=== PATIENT | female | born 1930 | race Caucasian/White ===

== ENCOUNTER 2017-11-04 02:31 | Inpatient (IN) ==
[2017-11-04] MEDS ORDERED: KETOROLAC 30 MG/1 ML VIAL IV STA (04:57)
[2017-11-04] MEDS ORDERED: KETOROLAC 30 MG/1 ML VIAL ONE (05:00)
[2017-11-04 06:44] LABS: Basophils % 0.3 % (0.0-0.8); Hematocrit 33.3 VOL% (35.7-47.0); Hemoglobin 11.1 GM/DL (12.0-16.0); Immature Granulocytes % 2.5 %; Immature Granulocytes Absolute 0.24 #; Lymphocytes # 0.5 10*3/uL (1.4-4.0); Lymphocytes % 5.5 % (21.3-54.2); Mean Corpuscular HGB Conc 33.3 GM/DL (32-36); Mean Corpuscular Hemoglobin 29 PG (27-34); Mean Corpuscular Volume 86.9 FL (87-102); Mean Platelet Volume 13.1 FL (9.6-12.0); Monocytes # 1.2 10*3/uL (0.11-0.8); Monocytes % 11.8 % (1.7-12.7); Neutrophils # 7.8 10*3/uL (1.4-7.4); Neutrophils % 79.9 % (38.7-73.9); Platelet Count 154 T/CUMM (130-400); Red Blood Count 3.83 MC/CUMM (3.8-5.5); Red Cell Distribution Width 14.1 % (9.3-17.3); White Blood Count 9.7 T/CUMM (4-12)
[2017-11-04 06:54] LABS: Alanine Aminotransferase 17 U/L (13-56); Albumin 2.2 G/DL (3.4-5.0); Alkaline Phosphatase 113 U/L (45-117); Aspartate Amino Transferase 33 U/L (0-37); Blood Urea Nitrogen 16 MG/DL (7-18); Calcium 8.6 MG/DL (8.5-10.1); Glucose 372 MG/DL (74-106); Osmolality,Calculated 288.8 MOS/KG (273-304); Potassium 3.6 MMOL/L (3.5-5.1); Sodium 137 MMOL/L (136-145); Troponin I Only < 0.015 NG/ML (0.00-0.045)
[2017-11-04 07:51] LABS: Apearance,Urine CLEAR (Clear); Bacteria,Urine Occasional /HPF (Few); Bilirubin,Urine Negative (Negative); Blood, Urine Small mg/dL (Negative); Glucose,Urine (UA) >=500 mg/dL (Negative); Hyaline Casts,Urine 2 /LPF (0-3); Ketones,Urine 20 mg/dL (Negative); Mucus,Urine Occasional /LPF (Occasional); Nitrite,Urine Negative (Negative); Protein,Urine 100 MG/DL; RBC,Urine 4 /HPF (0-4); Squamous Epithelial Cell,Urine Occasional /HPF (0-10); Urine Color Yellow (Yellow); Urine Specific Gravity 1.022 (1.001-1.035); Urine Urobilinogen < 2.0 EU/DL (0.2-1.0); WBC,Urine 7 /HPF (0-6)
[2017-11-04 08:02] LABS: Hypochromasia 1+; Lymphocytes 10 % (20-55); Myelocytes 1 %; Platelet Estimate Adequate; Segmented Neutrophils 75 % (50-85); Total Cells Counted 100
[2017-11-04] MEDS ORDERED: ONDANSETRON 4 MG/2 ML VIAL IV PRN (10:19)
[2017-11-04] MEDS ORDERED: DEXTROSE 50% 25 GM/50 ML VIAL IV PRN (10:31)
[2017-11-04] MEDS ORDERED: GLUCAGON 1 MG VIAL IM PRN (10:31)
[2017-11-04] MEDS ORDERED: INFLUENZA VIRUS VACCINE 0.5 ML SYRINGE IM ONE (11:48)
[2017-11-04] MEDS ORDERED: PNEUMOCOCCAL VACCINE (13 VALENT) 0.5 ML SYRINGE IM ONE (12:36)
[2017-11-04] MEDS: INSULIN LISPRO 100 UNIT/ML SUBCUT SCH ×3 (12:52→22:28)
[2017-11-04] MEDS: traZODone 50 MG TABLET PO SCH ×2 (16:33→22:04)
[2017-11-04] MEDS: GABAPENTIN 600 MG TABLET PO SCH ×2 (16:33→22:04)
[2017-11-04] MEDS: QUEtiapine 25 MG TABLET PO SCH ×2 (16:33→22:04)
[2017-11-04] MEDS: FERROUS SULFATE 325 MG TABLET PO SCH (22:04)
[2017-11-04] MEDS: DOCUSATE SODIUM 100 MG CAPSULE PO SCH (22:04)
[2017-11-05] MEDS: ACETAMINOPHEN 325 MG TABLET PO PRN ×2 (00:12→13:45)
[2017-11-05 06:18] LABS: Basophils % 0.3 % (0.0-0.8); Hematocrit 31.3 VOL% (35.7-47.0); Hemoglobin 10.4 GM/DL (12.0-16.0); Immature Granulocytes % 2.1 %; Immature Granulocytes Absolute 0.24 #; Lymphocytes # 0.7 10*3/uL (1.4-4.0); Lymphocytes % 5.9 % (21.3-54.2); Mean Corpuscular HGB Conc 33.2 GM/DL (32-36); Mean Corpuscular Hemoglobin 29 PG (27-34); Mean Corpuscular Volume 85.8 FL (87-102); Monocytes # 1.3 10*3/uL (0.11-0.8); Monocytes % 11.6 % (1.7-12.7); Neutrophils % 80.1 % (38.7-73.9); Platelet Count 165 T/CUMM (130-400); Red Blood Count 3.65 MC/CUMM (3.8-5.5); Red Cell Distribution Width 14.4 % (9.3-17.3); White Blood Count 11.2 T/CUMM (4-12)
[2017-11-05 06:57] LABS: Calcium 8.4 MG/DL (8.5-10.1); Magnesium 1.9 MG/DL (1.8-2.4); Osmolality,Calculated 286.8 MOS/KG (273-304); Potassium 3.3 MMOL/L (3.5-5.1); Thyroid Stimulating Hormone 0.23 uIU/ml (0.358-3.74)
[2017-11-05 06:59] LABS: Band Neutrophils 4 % (0-10); Lymphocytes 11 % (20-55); Myelocytes 3 %; Platelet Estimate Normal; Segmented Neutrophils 79 % (50-85); Total Cells Counted 100
[2017-11-05] MEDS ORDERED: CITALOPRAM 20 MG TABLET PO SCH (09:00)
[2017-11-05] MEDS ORDERED: fentaNYL 50 MCG/HR PATCH TRANSDERM SCH (10:30)
[2017-11-05] MEDS: INSULIN LISPRO 100 UNIT/ML SUBCUT SCH ×4 (11:08→23:49)
[2017-11-05] MEDS: QUEtiapine 25 MG TABLET PO SCH ×3 (11:16→23:38)
[2017-11-05] MEDS: GABAPENTIN 600 MG TABLET PO SCH ×3 (11:16→23:19)
[2017-11-05] MEDS: POTASSIUM CHLORIDE 20 MEQ TABLET PO SCH (11:16)
[2017-11-05] MEDS: PANTOPRAZOLE 40 MG TABLET PO SCH (11:16)
[2017-11-05] MEDS: FERROUS SULFATE 325 MG TABLET PO SCH ×2 (11:17→23:17)
[2017-11-05] MEDS: traZODone 50 MG TABLET PO SCH ×3 (11:17→23:38)
[2017-11-05] MEDS: DOCUSATE SODIUM 100 MG CAPSULE PO SCH ×2 (11:18→23:17)
[2017-11-05] MEDS: LEVOFLOXACIN INJ 750 MG in PREMIX 1 EACH IV SCH (22:34)
[2017-11-05] MEDS ORDERED: SUCCINYLCHOLINE 200 MG/10 ML VIAL IV ONE (22:36)
[2017-11-05] MEDS ORDERED: ETOMIDATE 20 MG/10 ML VIAL IV ONE (22:36)
[2017-11-05] MEDS ORDERED: fentaNYL 100 MCG/2 ML VIAL IV ONE (22:36)
[2017-11-05] MEDS ORDERED: PROPOFOL 1,000 MG/100 ML BOTTLE IV ONE (22:44)
[2017-11-05] MEDS ORDERED: FUROSEMIDE 40 MG/4 ML VIAL ONE (22:44)
[2017-11-05] MEDS ORDERED: FUROSEMIDE 40 MG/4 ML VIAL IV ONE (22:58)
[2017-11-05] MEDS: PROPOFOL 1,000 MG/100 ML BOTTLE IV SCH (23:01)
[2017-11-05 23:11] LABS: ABG Base Excess 4.4 MMOL/L (-2.5-2.5); ABG HCO3 28.3 MMOL/L (20-26); ABG Oxygen Saturation 96.3 % (95-100); ABG PCO2 45.3 MM HG (35-48); ABG PH 7.421 (7.35-7.45); ABG PO2 81.6 MM HG (80-95); ABG TCO2 26.5 MMOL/L (23-27); Allen Test Positive; Pt O2 Delivery Device Ventilator
[2017-11-05 23:15] LABS: Basophils # 0.1 10*3/uL (0.0-0.2); Basophils % 0.4 % (0.0-0.8); Hematocrit 33.4 VOL% (35.7-47.0); Hemoglobin 11.2 GM/DL (12.0-16.0); Immature Granulocytes % 2.7 %; Immature Granulocytes Absolute 0.38 #; Lymphocytes # 0.7 10*3/uL (1.4-4.0); Lymphocytes % 5.1 % (21.3-54.2); Mean Corpuscular HGB Conc 33.5 GM/DL (32-36); Mean Corpuscular Hemoglobin 29 PG (27-34); Mean Corpuscular Volume 85.9 FL (87-102); Mean Platelet Volume 12.2 FL (9.6-12.0); Monocytes # 1.6 10*3/uL (0.11-0.8); Monocytes % 11.4 % (1.7-12.7); NRBC # 0.03 10*3/uL; Neutrophils # 11.4 10*3/uL (1.4-7.4); Neutrophils % 80.4 % (38.7-73.9); Platelet Count 219 T/CUMM (130-400); Red Blood Count 3.89 MC/CUMM (3.8-5.5); Red Cell Distribution Width 15.1 % (9.3-17.3); White Blood Count 14.1 T/CUMM (4-12)
[2017-11-05] MEDS ORDERED: VANCOMYCIN INJ 1,250 MG in SODIUM CHLORIDE 0.9% 250 ML IV SCH (23:30)
[2017-11-05 23:34] LABS: Calcium 8.4 MG/DL (8.5-10.1); Osmolality,Calculated 296.4 MOS/KG (273-304); Potassium 4.1 MMOL/L (3.5-5.1)
[2017-11-05] MEDS: fentaNYL INJ 1,250 MCG in SODIUM CHLORIDE 0.9% 225 ML IV SCH (23:35)
[2017-11-06 01:40] LABS: Apearance,Urine CLOUDY (Clear); Bacteria,Urine Many /HPF (Few); Bilirubin,Urine Negative (Negative); Blood, Urine Moderate mg/dL (Negative); Glucose,Urine (UA) Negative (Negative); Ketones,Urine Negative (Negative); Mucus,Urine Few /LPF (Occasional); Nitrite,Urine Negative (Negative); Protein,Urine 100 MG/DL; RBC,Urine 7 /HPF (0-4); Squamous Epithelial Cell,Urine Occasional /HPF (0-10); Urine Color Amber (Yellow); Urine Specific Gravity 1.015 (1.001-1.035); WBC,Urine 85 /HPF (0-6)
[2017-11-06 03:18] LABS: ABG Base Excess 5.6 MMOL/L (-2.5-2.5); ABG HCO3 29.5 MMOL/L (20-26); ABG Oxygen Saturation 99.1 % (95-100); ABG PCO2 55.3 MM HG (35-48); Allen Test Positive; Pt O2 Delivery Device Ventilator
[2017-11-06 04:05] LABS: Band Neutrophils 1 % (0-10); Lymphocytes 9 % (20-55); Segmented Neutrophils 87 % (50-85); Total Cells Counted 100
[2017-11-06 04:06] LABS: Platelet Estimate Normal
[2017-11-06 06:44] LABS: Calcium 8.2 MG/DL (8.5-10.1); Osmolality,Calculated 295.4 MOS/KG (273-304); Potassium 4.5 MMOL/L (3.5-5.1)
[2017-11-06] MEDS: PHENYLEPHRINE DRIP 40 MG/250 ML PREMIX IV SCH ×2 (07:25→23:47)
[2017-11-06] MEDS: INSULIN LISPRO 100 UNIT/ML SUBCUT SCH ×4 (08:27→23:49)
[2017-11-06 08:45] LABS: Basophils # 0.1 10*3/uL (0.0-0.2); Basophils % 0.5 % (0.0-0.8); Eosinophils % 0.1 % (0.00-10.9); Hematocrit 29.4 VOL% (35.7-47.0); Hemoglobin 10.1 GM/DL (12.0-16.0); Immature Granulocytes % 2.5 %; Lymphocytes # 0.9 10*3/uL (1.4-4.0); Lymphocytes % 7.3 % (21.3-54.2); Mean Corpuscular HGB Conc 34.4 GM/DL (32-36); Mean Corpuscular Hemoglobin 30 PG (27-34); Mean Corpuscular Volume 86.5 FL (87-102); Mean Platelet Volume 12.2 FL (9.6-12.0); Monocytes # 1.5 10*3/uL (0.11-0.8); Monocytes % 12.2 % (1.7-12.7); Neutrophils # 9.2 10*3/uL (1.4-7.4); Neutrophils % 77.4 % (38.7-73.9); Platelet Count 192 T/CUMM (130-400); Red Cell Distribution Width 15.2 % (9.3-17.3); White Blood Count 11.9 T/CUMM (4-12)
[2017-11-06 09:02] LABS: Calcium 8.4 MG/DL (8.5-10.1); Magnesium 2.1 MG/DL (1.8-2.4); Osmolality,Calculated 295.5 MOS/KG (273-304); Potassium 3.9 MMOL/L (3.5-5.1)
[2017-11-06 09:06] LABS: Band Neutrophils 1 % (0-10); Hypochromasia 1+; Lymphocytes 10 % (20-55); Microcytosis Slight; Nucleated Red Blood Cells 1 (0-5); Segmented Neutrophils 77 % (50-85); Total Cells Counted 100
[2017-11-06 09:07] LABS: Platelet Estimate Adequate
[2017-11-06 09:12] LABS: Free T4 (Free Thyroxine) 1.16 NG/DL (0.76-1.46); Thyroid Stimulating Hormone 0.319 uIU/ml (0.358-3.74)
[2017-11-06 09:16] LABS: Cholesterol 74 MG/DL (50-200); HDL Cholesterol < 10 MG/DL (40-60); Triglycerides 205 MG/DL (2-150)
[2017-11-06 09:28] LABS: ABG Base Excess 5.5 MMOL/L (-2.5-2.5); ABG HCO3 30.4 MMOL/L (20-26); ABG Oxygen Saturation 97.9 % (95-100); ABG PCO2 46.6 MM HG (35-48); ABG PH 7.433 (7.35-7.45); ABG PO2 118.2 MM HG (80-95); ABG TCO2 31.9 MMOL/L (23-27)
[2017-11-06] MEDS: FERROUS SULFATE 300 MG/5 ML UDCUP PO SCH ×2 (11:13→21:39)
[2017-11-06] MEDS: POTASSIUM CHLORIDE 20 MEQ TABLET PO SCH (11:13)
[2017-11-06] MEDS: ASPIRIN EC 81 MG TABLET PO SCH (11:13)
[2017-11-06] MEDS: DOCUSATE SODIUM 100 MG/10 ML UDCUP PO SCH ×2 (11:13→21:39)
[2017-11-06] MEDS: GABAPENTIN 50 MG/ML 30 ML/BOTTLE PO SCH ×3 (11:14→21:39)
[2017-11-06] MEDS: PANTOPRAZOLE 40 MG VIAL IV SCH (11:14)
[2017-11-06] MEDS: GABAPENTIN 600 MG TABLET PO SCH (11:37)
[2017-11-06] MEDS: DOCUSATE SODIUM 100 MG CAPSULE PO SCH (11:37)
[2017-11-06] MEDS: FERROUS SULFATE 325 MG TABLET PO SCH (11:37)
[2017-11-06] MEDS: PANTOPRAZOLE 40 MG TABLET PO SCH (11:38)
[2017-11-06] MEDS: SODIUM CHLORIDE 0.9% 1,000 ML IV SCH ×2 (13:38→21:39)
[2017-11-06] MEDS: fentaNYL INJ 1,250 MCG in SODIUM CHLORIDE 0.9% 225 ML IV SCH ×2 (15:02)
[2017-11-06] MEDS ORDERED: VANCOMYCIN INJ 1,250 MG in SODIUM CHLORIDE 0.45% 250 ML IV SCH (23:00)
[2017-11-06] MEDS: PROPOFOL 1,000 MG/100 ML BOTTLE IV SCH (23:46)
[2017-11-07 04:25] LABS: ABG Base Excess 1.5 MMOL/L (-2.5-2.5); ABG HCO3 25.7 MMOL/L (20-26); ABG Oxygen Saturation 99.2 % (95-100); ABG PCO2 45.8 MM HG (35-48); ABG PH 7.378 (7.35-7.45); ABG TCO2 24.9 MMOL/L (23-27)
[2017-11-07 05:29] LABS: Basophils % 0.2 % (0.0-0.8); Eosinophils % 0.1 % (0.00-10.9); Hematocrit 27.6 VOL% (35.7-47.0); Hemoglobin 8.9 GM/DL (12.0-16.0); Immature Granulocytes % 4.1 %; Immature Granulocytes Absolute 0.48 #; Lymphocytes # 0.8 10*3/uL (1.4-4.0); Lymphocytes % 6.4 % (21.3-54.2); Mean Corpuscular HGB Conc 32.2 GM/DL (32-36); Mean Corpuscular Hemoglobin 28 PG (27-34); Mean Corpuscular Volume 87.9 FL (87-102); Mean Platelet Volume 12.1 FL (9.6-12.0); Monocytes # 0.9 10*3/uL (0.11-0.8); Monocytes % 7.6 % (1.7-12.7); Neutrophils # 9.6 10*3/uL (1.4-7.4); Neutrophils % 81.6 % (38.7-73.9); Platelet Count 202 T/CUMM (130-400); Red Blood Count 3.14 MC/CUMM (3.8-5.5); Red Cell Distribution Width 15.6 % (9.3-17.3); White Blood Count 11.8 T/CUMM (4-12)
[2017-11-07] MEDS: SODIUM CHLORIDE 0.9% 1,000 ML IV SCH ×3 (05:49→21:44)
[2017-11-07 06:03] LABS: Giant Platelets Few; Hypochromasia 1+; Ovalocytes Slight; Platelet Estimate Adequate
[2017-11-07 06:04] LABS: Microcytosis Slight
[2017-11-07 06:11] LABS: Calcium 7.8 MG/DL (8.5-10.1); Magnesium 2.1 MG/DL (1.8-2.4); Osmolality,Calculated 306.8 MOS/KG (273-304); Potassium 4.2 MMOL/L (3.5-5.1)
[2017-11-07] MEDS: INSULIN LISPRO 100 UNIT/ML SUBCUT SCH ×3 (06:26→18:32)
[2017-11-07] MEDS ORDERED: VANCOMYCIN INJ 1,250 MG in SODIUM CHLORIDE 0.45% 250 ML IV PRN (08:15)
[2017-11-07] MEDS ORDERED: VANCOMYCIN INJ 1,250 MG in SODIUM CHLORIDE 0.45% 250 ML IV ONE (09:00)
[2017-11-07] MEDS ORDERED: DILTIAZEM 50 MG/10 ML VIAL IV ONE ×2 (09:02→09:05)
[2017-11-07] MEDS: DILTIAZEM INJ 100 MG in SODIUM CHLORIDE 0.9% 100 ML IV SCH (09:21)
[2017-11-07] MEDS: ASPIRIN EC 81 MG TABLET PO SCH (10:28)
[2017-11-07] MEDS: FERROUS SULFATE 300 MG/5 ML UDCUP PO SCH ×2 (10:28→20:07)
[2017-11-07] MEDS: DOCUSATE SODIUM 100 MG/10 ML UDCUP PO SCH ×2 (10:28→20:07)
[2017-11-07] MEDS: POTASSIUM CHLORIDE 20 MEQ TABLET PO SCH (10:28)
[2017-11-07] MEDS: GABAPENTIN 50 MG/ML 30 ML/BOTTLE PO SCH ×3 (10:29→20:11)
[2017-11-07] MEDS: ASCORBIC ACID 500 MG TABLET PO SCH ×2 (10:29→20:08)
[2017-11-07] MEDS: PANTOPRAZOLE 40 MG VIAL IV SCH (10:53)
[2017-11-07] MEDS ORDERED: LINEZOLID INJ 600 MG in PREMIX 1 EACH IV SCH (11:00)
[2017-11-07] MEDS: PROPOFOL 1,000 MG/100 ML BOTTLE IV SCH ×2 (12:40→19:16)
[2017-11-07] MEDS: fentaNYL INJ 1,250 MCG in SODIUM CHLORIDE 0.9% 225 ML IV SCH ×3 (13:11→19:55)
[2017-11-07] MEDS: traZODone 50 MG TABLET NG SCH (20:08)
[2017-11-07] MEDS: QUEtiapine 25 MG TABLET NG SCH (20:08)
[2017-11-07] MEDS: HydrOXYzine PAMOATE 25 MG CAPSULE NG SCH (20:08)
[2017-11-07] MEDS: LEVOFLOXACIN INJ 750 MG in PREMIX 1 EACH IV SCH (20:11)
[2017-11-08] MEDS: PHENYLEPHRINE DRIP 40 MG/250 ML PREMIX IV SCH (00:41)
[2017-11-08] MEDS: INSULIN LISPRO 100 UNIT/ML SUBCUT SCH ×4 (00:48→17:23)
[2017-11-08 04:18] LABS: ABG Base Excess -1.7 MMOL/L (-2.5-2.5); ABG HCO3 24.2 MMOL/L (20-26); ABG PCO2 46.3 MM HG (35-48); ABG PH 7.336 (7.35-7.45); ABG PO2 121.2 MM HG (80-95); ABG TCO2 25.6 MMOL/L (23-27); Allen Test Positive; Pt O2 Delivery Device Ventilator
[2017-11-08] MEDS: SODIUM CHLORIDE 0.9% 1,000 ML IV SCH ×3 (05:43→20:51)
[2017-11-08] MEDS: PROPOFOL 1,000 MG/100 ML BOTTLE IV SCH (07:33)
[2017-11-08 07:59] LABS: Basophils % 0.2 % (0.0-0.8); Eosinophils % 0.3 % (0.00-10.9); Hematocrit 26.8 VOL% (35.7-47.0); Hemoglobin 8.4 GM/DL (12.0-16.0); Immature Granulocytes % 6.3 %; Immature Granulocytes Absolute 0.82 #; Lymphocytes # 0.8 10*3/uL (1.4-4.0); Lymphocytes % 6.1 % (21.3-54.2); Mean Corpuscular HGB Conc 31.3 GM/DL (32-36); Mean Corpuscular Hemoglobin 28 PG (27-34); Mean Corpuscular Volume 89.6 FL (87-102); Monocytes # 0.8 10*3/uL (0.11-0.8); Monocytes % 5.9 % (1.7-12.7); NRBC # 0.02 10*3/uL; Neutrophils # 10.5 10*3/uL (1.4-7.4); Neutrophils % 81.2 % (38.7-73.9); Platelet Count 260 T/CUMM (130-400); Red Blood Count 2.99 MC/CUMM (3.8-5.5); Red Cell Distribution Width 15.9 % (9.3-17.3)
[2017-11-08 08:20] LABS: Band Neutrophils 2 % (0-10); Giant Platelets Few; Hypochromasia 1+; Lymphocytes 6 % (20-55); Microcytosis Slight; Nucleated Red Blood Cells 1 (0-5); Ovalocytes Slight; Platelet Estimate Adequate; Segmented Neutrophils 86 % (50-85); Total Cells Counted 100
[2017-11-08 08:21] LABS: Magnesium 2.1 MG/DL (1.8-2.4); Osmolality,Calculated 306.8 MOS/KG (273-304); Potassium 3.9 MMOL/L (3.5-5.1)
[2017-11-08 08:28] LABS: ABG Base Excess -1.4 MMOL/L (-2.5-2.5); ABG HCO3 23.2 MMOL/L (20-26); ABG Oxygen Saturation 96.7 % (95-100); ABG PCO2 42.5 MM HG (35-48); ABG TCO2 22.2 MMOL/L (23-27)
[2017-11-08] MEDS: CITALOPRAM 20 MG TABLET NG SCH (08:59)
[2017-11-08] MEDS: ASPIRIN EC 81 MG TABLET PO SCH (08:59)
[2017-11-08] MEDS: HydrOXYzine PAMOATE 25 MG CAPSULE NG SCH ×2 (08:59→20:38)
[2017-11-08] MEDS ORDERED: CITALOPRAM 20 MG TABLET PO SCH (09:00)
[2017-11-08] MEDS: DOCUSATE SODIUM 100 MG/10 ML UDCUP PO SCH ×2 (09:00→20:37)
[2017-11-08] MEDS: FERROUS SULFATE 300 MG/5 ML UDCUP PO SCH ×2 (09:00→20:37)
[2017-11-08] MEDS: traZODone 50 MG TABLET NG SCH ×3 (09:06→20:38)
[2017-11-08] MEDS: QUEtiapine 25 MG TABLET NG SCH ×3 (09:06→20:38)
[2017-11-08] MEDS: PANTOPRAZOLE 40 MG VIAL IV SCH (09:23)
[2017-11-08 09:46] LABS: ABG HCO3 22.7 MMOL/L (20-26); ABG Oxygen Saturation 92.4 % (95-100); ABG PCO2 39.9 MM HG (35-48); ABG PH 7.371 (7.35-7.45); ABG PO2 63.6 MM HG (80-95); ABG TCO2 21.3 MMOL/L (23-27); Allen Test Positive; Pt O2 Delivery Device Venturi Mask
[2017-11-08] MEDS: ALBUTEROL/IPRATROPIUM 3 ML NEB RESP TX PRN ×2 (09:56→12:33)
[2017-11-08] MEDS: POTASSIUM CHLORIDE 20 MEQ TABLET PO SCH (10:34)
[2017-11-08] MEDS: GABAPENTIN 50 MG/ML 30 ML/BOTTLE PO SCH ×3 (10:35→20:41)
[2017-11-08] MEDS: ASCORBIC ACID 500 MG TABLET PO SCH ×2 (10:35→20:37)
[2017-11-08] MEDS: DILTIAZEM INJ 100 MG in SODIUM CHLORIDE 0.9% 100 ML IV SCH (18:15)
[2017-11-09] MEDS: PROPOFOL 1,000 MG/100 ML BOTTLE IV SCH ×5 (00:08→21:09)
[2017-11-09] MEDS: PHENYLEPHRINE DRIP 40 MG/250 ML PREMIX IV SCH (00:09)
[2017-11-09] MEDS: INSULIN LISPRO 100 UNIT/ML SUBCUT SCH ×4 (00:28→18:41)
[2017-11-09 02:57] LABS: ABG Base Excess -3.2 MMOL/L (-2.5-2.5); ABG HCO3 20.2 MMOL/L (20-26); ABG Oxygen Saturation 91.3 % (95-100); ABG PCO2 30.4 MM HG (35-48); ABG PH 7.441 (7.35-7.45); ABG PO2 64.2 MM HG (80-95); ABG TCO2 21.2 MMOL/L (23-27); Pt O2 Delivery Device Venturi Mask
[2017-11-09] MEDS: DILTIAZEM INJ 100 MG in SODIUM CHLORIDE 0.9% 100 ML IV SCH ×2 (04:31→12:59)
[2017-11-09] MEDS: SODIUM CHLORIDE 0.9% 1,000 ML IV SCH (05:01)
[2017-11-09 06:27] LABS: Basophils # 0.1 10*3/uL (0.0-0.2); Basophils % 0.3 % (0.0-0.8); Hematocrit 25.6 VOL% (35.7-47.0); Hemoglobin 8.4 GM/DL (12.0-16.0); Immature Granulocytes % 6.1 %; Lymphocytes # 0.9 10*3/uL (1.4-4.0); Lymphocytes % 5.2 % (21.3-54.2); Mean Corpuscular HGB Conc 32.8 GM/DL (32-36); Mean Corpuscular Hemoglobin 28 PG (27-34); Mean Corpuscular Volume 86.5 FL (87-102); Mean Platelet Volume 12.3 FL (9.6-12.0); Monocytes # 1.3 10*3/uL (0.11-0.8); Monocytes % 7.1 % (1.7-12.7); NRBC # 0.03 10*3/uL; Neutrophils # 14.6 10*3/uL (1.4-7.4); Neutrophils % 81.3 % (38.7-73.9); Platelet Count 306 T/CUMM (130-400); Red Blood Count 2.96 MC/CUMM (3.8-5.5); Red Cell Distribution Width 15.9 % (9.3-17.3)
[2017-11-09] MEDS ORDERED: FUROSEMIDE 40 MG/4 ML VIAL IV ONE (06:33)
[2017-11-09 06:40] LABS: Calcium 7.6 MG/DL (8.5-10.1); Osmolality,Calculated 313.1 MOS/KG (273-304)
[2017-11-09 06:53] LABS: Band Neutrophils 2 % (0-10); Lymphocytes 9 % (20-55); Segmented Neutrophils 81 % (50-85); Total Cells Counted 100
[2017-11-09 06:54] LABS: Giant Platelets Few; Hypochromasia 1+; Microcytosis Slight; Ovalocytes Slight; Platelet Estimate Adequate
[2017-11-09] MEDS: QUEtiapine 25 MG TABLET NG SCH ×3 (08:49→21:08)
[2017-11-09] MEDS: HydrOXYzine PAMOATE 25 MG CAPSULE NG SCH ×2 (08:49→21:08)
[2017-11-09] MEDS: ASCORBIC ACID 500 MG TABLET PO SCH ×2 (08:49→21:08)
[2017-11-09] MEDS: CITALOPRAM 20 MG TABLET NG SCH (08:49)
[2017-11-09] MEDS: traZODone 50 MG TABLET NG SCH ×3 (08:49→21:08)
[2017-11-09] MEDS: FERROUS SULFATE 300 MG/5 ML UDCUP PO SCH ×2 (08:50→21:08)
[2017-11-09] MEDS: POTASSIUM CHLORIDE 20 MEQ TABLET PO SCH (08:50)
[2017-11-09] MEDS: DOCUSATE SODIUM 100 MG/10 ML UDCUP PO SCH ×2 (08:50→21:08)
[2017-11-09] MEDS: GABAPENTIN 50 MG/ML 30 ML/BOTTLE PO SCH ×2 (08:51→15:50)
[2017-11-09] MEDS: ASPIRIN EC 81 MG TABLET PO SCH (08:51)
[2017-11-09] MEDS: PANTOPRAZOLE 40 MG VIAL IV SCH (08:51)
[2017-11-09] MEDS: ALBUTEROL/IPRATROPIUM 3 ML NEB RESP TX PRN (09:30)
[2017-11-09] MEDS ORDERED: PROPOFOL 1,000 MG/100 ML BOTTLE IV ONE (11:20)
[2017-11-09] MEDS ORDERED: ZINC OXIDE PASTE 113 GM TUBE TOP PRN (15:06)
[2017-11-09] MEDS: LEVOFLOXACIN INJ 750 MG in PREMIX 1 EACH IV SCH (21:08)
[2017-11-10] MEDS: INSULIN LISPRO 100 UNIT/ML SUBCUT SCH ×4 (01:02→18:05)
[2017-11-10] MEDS: GABAPENTIN 50 MG/ML 30 ML/BOTTLE PO SCH ×4 (01:20→20:33)
[2017-11-10] MEDS: PROPOFOL 1,000 MG/100 ML BOTTLE IV SCH ×5 (01:26→23:30)
[2017-11-10 03:18] LABS: ABG Base Excess -3.1 MMOL/L (-2.5-2.5); ABG HCO3 21.2 MMOL/L (20-26); ABG Oxygen Saturation 96.9 % (95-100); ABG PCO2 34.9 MM HG (35-48); ABG PH 7.402 (7.35-7.45); ABG PO2 98.7 MM HG (80-95); ABG TCO2 22.3 MMOL/L (23-27); Allen Test Positive; Pt O2 Delivery Device Ventilator
[2017-11-10] MEDS: PHENYLEPHRINE DRIP 40 MG/250 ML PREMIX IV SCH (04:02)
[2017-11-10 04:57] LABS: Basophils % 0.1 % (0.0-0.8); Eosinophils % 0.2 % (0.00-10.9); Hematocrit 23.2 VOL% (35.7-47.0); Hemoglobin 7.4 GM/DL (12.0-16.0); Immature Granulocytes % 7.7 %; Immature Granulocytes Absolute 1.02 #; Lymphocytes # 0.9 10*3/uL (1.4-4.0); Lymphocytes % 6.5 % (21.3-54.2); Mean Corpuscular HGB Conc 31.9 GM/DL (32-36); Mean Corpuscular Hemoglobin 29 PG (27-34); Mean Corpuscular Volume 89.2 FL (87-102); Mean Platelet Volume 11.3 FL (9.6-12.0); Monocytes # 0.8 10*3/uL (0.11-0.8); Monocytes % 5.9 % (1.7-12.7); NRBC # 0.02 10*3/uL; Neutrophils # 10.6 10*3/uL (1.4-7.4); Neutrophils % 79.6 % (38.7-73.9); Platelet Count 334 T/CUMM (130-400); Red Cell Distribution Width 16.1 % (9.3-17.3); White Blood Count 13.3 T/CUMM (4-12)
[2017-11-10 05:38] LABS: Calcium 7.9 MG/DL (8.5-10.1); Magnesium 2.2 MG/DL (1.8-2.4); Osmolality,Calculated 319.3 MOS/KG (273-304); Potassium 4.1 MMOL/L (3.5-5.1)
[2017-11-10 06:20] LABS: Band Neutrophils 17 % (0-10); Lymphocytes 7 % (20-55); Metamyelocytes 2 %; Segmented Neutrophils 69 % (50-85); Total Cells Counted 100
[2017-11-10 06:21] LABS: Anisocytosis 1+; Poikilocytosis 1+; Polychromasia Slight
[2017-11-10] MEDS: HydrOXYzine PAMOATE 25 MG CAPSULE NG SCH ×2 (09:10→20:33)
[2017-11-10] MEDS: DOCUSATE SODIUM 100 MG/10 ML UDCUP PO SCH ×2 (09:10→20:33)
[2017-11-10] MEDS: CITALOPRAM 20 MG TABLET NG SCH (09:10)
[2017-11-10] MEDS: PANTOPRAZOLE 40 MG VIAL IV SCH (09:10)
[2017-11-10] MEDS: ASCORBIC ACID 500 MG TABLET PO SCH ×2 (09:10→20:33)
[2017-11-10] MEDS: POTASSIUM CHLORIDE 20 MEQ TABLET PO SCH (09:10)
[2017-11-10] MEDS: ASPIRIN EC 81 MG TABLET PO SCH (09:10)
[2017-11-10] MEDS: QUEtiapine 25 MG TABLET NG SCH ×3 (09:10→20:33)
[2017-11-10] MEDS: traZODone 50 MG TABLET NG SCH ×3 (09:10→20:33)
[2017-11-10] MEDS: FERROUS SULFATE 300 MG/5 ML UDCUP PO SCH ×2 (09:10→20:33)
[2017-11-10] MEDS: DILTIAZEM INJ 100 MG in SODIUM CHLORIDE 0.9% 100 ML IV SCH (10:00)
[2017-11-10] MEDS ORDERED: VANCOMYCIN INJ 1,500 MG in SODIUM CHLORIDE 0.9% 500 ML IV PRN (17:06)
[2017-11-10] MEDS ORDERED: VANCOMYCIN INJ 1,500 MG in SODIUM CHLORIDE 0.9% 500 ML IV ONE (18:00)
[2017-11-11 03:50] LABS: Basophils % 0.1 % (0.0-0.8); Eosinophils % 0.2 % (0.00-10.9); Hematocrit 24.3 VOL% (35.7-47.0); Hemoglobin 7.6 GM/DL (12.0-16.0); Immature Granulocytes % 10.1 %; Immature Granulocytes Absolute 1.43 #; Lymphocytes # 0.8 10*3/uL (1.4-4.0); Lymphocytes % 5.8 % (21.3-54.2); Mean Corpuscular HGB Conc 31.3 GM/DL (32-36); Mean Corpuscular Hemoglobin 28 PG (27-34); Mean Corpuscular Volume 90.7 FL (87-102); Mean Platelet Volume 11.4 FL (9.6-12.0); Monocytes # 0.9 10*3/uL (0.11-0.8); NRBC # 0.02 10*3/uL; Neutrophils % 77.8 % (38.7-73.9); Platelet Count 367 T/CUMM (130-400); Red Blood Count 2.68 MC/CUMM (3.8-5.5); Red Cell Distribution Width 16.5 % (9.3-17.3); White Blood Count 14.2 T/CUMM (4-12)
[2017-11-11] MEDS: INSULIN LISPRO 100 UNIT/ML SUBCUT SCH ×5 (03:53→23:59)
[2017-11-11 04:11] LABS: ABG Base Excess -2.8 MMOL/L (-2.5-2.5); ABG HCO3 22.4 MMOL/L (20-26); ABG Oxygen Saturation 98.5 % (95-100); ABG PCO2 40.8 MM HG (35-48); ABG PH 7.358 (7.35-7.45); ABG PO2 146.6 MM HG (80-95); ABG TCO2 23.7 MMOL/L (23-27); Allen Test Positive; Pt O2 Delivery Device Ventilator
[2017-11-11 04:19] LABS: Calcium 7.7 MG/DL (8.5-10.1); Osmolality,Calculated 318.6 MOS/KG (273-304); Potassium 4.6 MMOL/L (3.5-5.1)
[2017-11-11 05:06] LABS: Band Neutrophils 1 % (0-10); Lymphocytes 5 % (20-55); Metamyelocytes 2 %; Myelocytes 3 %; Segmented Neutrophils 85 % (50-85); Total Cells Counted 100
[2017-11-11 05:07] LABS: Target Cells Few
[2017-11-11 05:08] LABS: Hypochromasia 1+; Platelet Estimate Normal; Polychromasia Few
[2017-11-11 06:00] LABS: Microcytosis Slight
[2017-11-11] MEDS: PHENYLEPHRINE DRIP 40 MG/250 ML PREMIX IV SCH ×2 (07:00→22:48)
[2017-11-11] MEDS: ASPIRIN EC 81 MG TABLET PO SCH (08:30)
[2017-11-11] MEDS: HydrOXYzine PAMOATE 25 MG CAPSULE NG SCH ×2 (08:30→20:30)
[2017-11-11] MEDS: GABAPENTIN 50 MG/ML 30 ML/BOTTLE PO SCH ×3 (08:30→20:30)
[2017-11-11] MEDS: QUEtiapine 25 MG TABLET NG SCH ×3 (08:30→20:30)
[2017-11-11] MEDS: DOCUSATE SODIUM 100 MG/10 ML UDCUP PO SCH ×2 (08:30→20:29)
[2017-11-11] MEDS: POTASSIUM CHLORIDE 20 MEQ TABLET PO SCH (08:30)
[2017-11-11] MEDS: FERROUS SULFATE 300 MG/5 ML UDCUP PO SCH ×2 (08:30→20:29)
[2017-11-11] MEDS: traZODone 50 MG TABLET NG SCH ×3 (08:30→20:29)
[2017-11-11] MEDS: ASCORBIC ACID 500 MG TABLET PO SCH ×2 (08:30→20:29)
[2017-11-11] MEDS: PANTOPRAZOLE 40 MG VIAL IV SCH (08:30)
[2017-11-11] MEDS: CITALOPRAM 20 MG TABLET NG SCH (08:30)
[2017-11-11] MEDS: DILTIAZEM INJ 100 MG in SODIUM CHLORIDE 0.9% 100 ML IV SCH (10:00)
[2017-11-11] MEDS: PROPOFOL 1,000 MG/100 ML BOTTLE IV SCH ×3 (11:00→22:40)
[2017-11-11] MEDS: INSULIN GLARGINE 100 UNIT/ML SUBCUT SCH (20:29)
[2017-11-11] MEDS: LEVOFLOXACIN INJ 750 MG in PREMIX 1 EACH IV SCH (20:30)
[2017-11-11] MEDS: fentaNYL 100 MCG/2 ML VIAL IV PRN (22:38)
[2017-11-12] MEDS: PROPOFOL 1,000 MG/100 ML BOTTLE IV SCH ×5 (03:02→20:18)
[2017-11-12 03:31] LABS: Allen Test Positive; Pt O2 Delivery Device Ventilator
[2017-11-12 03:32] LABS: ABG Base Excess -1.3 MMOL/L (-2.5-2.5); ABG HCO3 23.5 MMOL/L (20-26); ABG Oxygen Saturation 97.7 % (95-100); ABG PCO2 39.7 MM HG (35-48); ABG PH 7.391 (7.35-7.45); ABG PO2 109.2 MM HG (80-95); ABG TCO2 24.8 MMOL/L (23-27)
[2017-11-12 05:56] LABS: Basophils % 0.3 % (0.0-0.8); Eosinophils # 0.1 10*3/uL (0.0-0.87); Eosinophils % 0.5 % (0.00-10.9); Hematocrit 25.7 VOL% (35.7-47.0); Immature Granulocytes % 12.6 %; Immature Granulocytes Absolute 1.85 #; Lymphocytes % 6.8 % (21.3-54.2); Mean Corpuscular HGB Conc 31.1 GM/DL (32-36); Mean Corpuscular Hemoglobin 29 PG (27-34); Mean Corpuscular Volume 93.1 FL (87-102); Mean Platelet Volume 11.4 FL (9.6-12.0); Monocytes % 6.5 % (1.7-12.7); NRBC # 0.04 10*3/uL; Neutrophils # 10.7 10*3/uL (1.4-7.4); Neutrophils % 73.3 % (38.7-73.9); Platelet Count 459 T/CUMM (130-400); Red Blood Count 2.76 MC/CUMM (3.8-5.5); Red Cell Distribution Width 16.8 % (9.3-17.3); White Blood Count 14.7 T/CUMM (4-12)
[2017-11-12 06:19] LABS: Osmolality,Calculated 316.3 MOS/KG (273-304); Potassium 4.9 MMOL/L (3.5-5.1)
[2017-11-12] MEDS: INSULIN LISPRO 100 UNIT/ML SUBCUT SCH ×4 (06:36→23:48)
[2017-11-12 08:34] LABS: Band Neutrophils 1 % (0-10); Eosinophils 2 % (0-10); Hypochromasia 1+; Lymphocytes 4 % (20-55); Ovalocytes Slight; Platelet Estimate Adequate; Segmented Neutrophils 87 % (50-85); Total Cells Counted 100
[2017-11-12 08:35] LABS: Giant Platelets Few; Microcytosis Slight
[2017-11-12] MEDS: FERROUS SULFATE 300 MG/5 ML UDCUP PO SCH ×2 (09:28→20:16)
[2017-11-12] MEDS: POTASSIUM CHLORIDE 20 MEQ/15 ML UDCUP PO SCH (09:28)
[2017-11-12] MEDS: DOCUSATE SODIUM 100 MG/10 ML UDCUP PO SCH ×2 (09:28→20:16)
[2017-11-12] MEDS: QUEtiapine 25 MG TABLET NG SCH ×3 (09:29→20:16)
[2017-11-12] MEDS: HydrOXYzine PAMOATE 25 MG CAPSULE NG SCH ×2 (09:29→20:16)
[2017-11-12] MEDS: ASCORBIC ACID 500 MG TABLET PO SCH ×2 (09:29→20:16)
[2017-11-12] MEDS: ASPIRIN EC 81 MG TABLET PO SCH (09:29)
[2017-11-12] MEDS: PANTOPRAZOLE 40 MG VIAL IV SCH (09:29)
[2017-11-12] MEDS: CITALOPRAM 20 MG TABLET NG SCH (09:29)
[2017-11-12] MEDS: traZODone 50 MG TABLET NG SCH ×3 (09:29→20:15)
[2017-11-12] MEDS: fentaNYL 100 MCG/2 ML VIAL IV PRN ×4 (09:37→23:48)
[2017-11-12] MEDS ORDERED: VANCOMYCIN INJ 1,500 MG in SODIUM CHLORIDE 0.9% 500 ML IV ONE (10:00)
[2017-11-12] MEDS: DILTIAZEM INJ 100 MG in SODIUM CHLORIDE 0.9% 100 ML IV SCH (10:17)
[2017-11-12] MEDS: GABAPENTIN 50 MG/ML 30 ML/BOTTLE PO SCH ×3 (11:41→20:20)
[2017-11-12] MEDS ORDERED: TOBRAMYCIN INJ 160 MG in SODIUM CHLORIDE 0.9% 100 ML IV PRN (13:00)
[2017-11-12] MEDS ORDERED: TOBRAMYCIN INJ 160 MG in SODIUM CHLORIDE 0.9% 100 ML IV ONE (14:00)
[2017-11-12] MEDS: INSULIN GLARGINE 100 UNIT/ML SUBCUT SCH (20:15)
[2017-11-12] MEDS: PHENYLEPHRINE DRIP 40 MG/250 ML PREMIX IV SCH (23:38)
[2017-11-13] MEDS: PROPOFOL 1,000 MG/100 ML BOTTLE IV SCH ×4 (00:17→18:24)
[2017-11-13 03:48] LABS: ABG Base Excess -1.2 MMOL/L (-2.5-2.5); ABG HCO3 23.5 MMOL/L (20-26); ABG Oxygen Saturation 97.4 % (95-100); ABG PH 7.397 (7.35-7.45); ABG PO2 98.6 MM HG (80-95); ABG TCO2 24.7 MMOL/L (23-27)
[2017-11-13 04:51] LABS: Basophils % 0.2 % (0.0-0.8); Eosinophils # 0.1 10*3/uL (0.0-0.87); Eosinophils % 0.4 % (0.00-10.9); Hematocrit 25.4 VOL% (35.7-47.0); Hemoglobin 8.1 GM/DL (12.0-16.0); Immature Granulocytes % 12.2 %; Immature Granulocytes Absolute 2.02 #; Lymphocytes # 1.2 10*3/uL (1.4-4.0); Mean Corpuscular HGB Conc 31.9 GM/DL (32-36); Mean Corpuscular Hemoglobin 29 PG (27-34); Mean Corpuscular Volume 91.4 FL (87-102); Mean Platelet Volume 10.6 FL (9.6-12.0); Monocytes # 1.1 10*3/uL (0.11-0.8); Monocytes % 6.6 % (1.7-12.7); NRBC # 0.02 10*3/uL; Neutrophils # 12.2 10*3/uL (1.4-7.4); Neutrophils % 73.6 % (38.7-73.9); Platelet Count 511 T/CUMM (130-400); Red Blood Count 2.78 MC/CUMM (3.8-5.5); Red Cell Distribution Width 16.9 % (9.3-17.3); White Blood Count 16.6 T/CUMM (4-12)
[2017-11-13] MEDS: INSULIN LISPRO 100 UNIT/ML SUBCUT SCH ×3 (05:15→17:50)
[2017-11-13] MEDS: hydrALAZINE 20 MG/1 ML VIAL IV PRN (05:17)
[2017-11-13 05:18] LABS: Band Neutrophils 2 % (0-10); Eosinophils 1 % (0-10); Hypochromasia 1+; Lymphocytes 5 % (20-55); Metamyelocytes 1 %; Microcytosis Slight; Myelocytes 1 %; Segmented Neutrophils 82 % (50-85); Total Cells Counted 100
[2017-11-13 05:27] LABS: Calcium 7.7 MG/DL (8.5-10.1); Osmolality,Calculated 320.1 MOS/KG (273-304); Potassium 5.5 MMOL/L (3.5-5.1)
[2017-11-13 05:34] LABS: Magnesium 2.2 MG/DL (1.8-2.4)
[2017-11-13] MEDS ORDERED: VECURONIUM 10 MG VIAL IV ONE (05:56)
[2017-11-13] MEDS: fentaNYL 100 MCG/2 ML VIAL IV PRN ×2 (06:36→11:22)
[2017-11-13] MEDS: CITALOPRAM 20 MG TABLET NG SCH (08:01)
[2017-11-13] MEDS: FERROUS SULFATE 300 MG/5 ML UDCUP PO SCH ×2 (08:01→20:57)
[2017-11-13] MEDS: ASPIRIN EC 81 MG TABLET PO SCH (08:01)
[2017-11-13] MEDS: PANTOPRAZOLE 40 MG VIAL IV SCH (08:01)
[2017-11-13] MEDS: DOCUSATE SODIUM 100 MG/10 ML UDCUP PO SCH ×2 (08:01→20:57)
[2017-11-13] MEDS: QUEtiapine 25 MG TABLET NG SCH ×3 (08:01→20:58)
[2017-11-13] MEDS: traZODone 50 MG TABLET NG SCH ×3 (08:01→20:58)
[2017-11-13] MEDS: POTASSIUM CHLORIDE 20 MEQ/15 ML UDCUP PO SCH (08:03)
[2017-11-13] MEDS: HydrOXYzine PAMOATE 25 MG CAPSULE NG SCH ×2 (08:03→20:58)
[2017-11-13] MEDS: GABAPENTIN 50 MG/ML 30 ML/BOTTLE PO SCH ×3 (08:19→23:53)
[2017-11-13] MEDS: ASCORBIC ACID 500 MG TABLET PO SCH ×2 (09:25→20:58)
[2017-11-13] MEDS: INSULIN GLARGINE 100 UNIT/ML SUBCUT SCH (20:57)
[2017-11-13] MEDS: PHENYLEPHRINE DRIP 40 MG/250 ML PREMIX IV SCH (23:55)
[2017-11-14] MEDS: INSULIN LISPRO 100 UNIT/ML SUBCUT SCH ×4 (00:12→18:06)
[2017-11-14] MEDS: fentaNYL 100 MCG/2 ML VIAL IV PRN (01:48)
[2017-11-14] MEDS: PROPOFOL 1,000 MG/100 ML BOTTLE IV SCH ×3 (03:19→18:30)
[2017-11-14 03:52] LABS: ABG Base Excess -1.8 MMOL/L (-2.5-2.5); ABG HCO3 22.9 MMOL/L (20-26); ABG Oxygen Saturation 99.2 % (95-100); ABG PCO2 45.2 MM HG (35-48); ABG PH 7.333 (7.35-7.45); ABG TCO2 22.7 MMOL/L (23-27); Allen Test Positive; Pt O2 Delivery Device Ventilator
[2017-11-14 04:53] LABS: Basophils # 0.1 10*3/uL (0.0-0.2); Basophils % 0.3 % (0.0-0.8); Eosinophils # 0.1 10*3/uL (0.0-0.87); Eosinophils % 0.5 % (0.00-10.9); Hematocrit 26.1 VOL% (35.7-47.0); Hemoglobin 8.1 GM/DL (12.0-16.0); Immature Granulocytes Absolute 1.39 #; Lymphocytes # 1.1 10*3/uL (1.4-4.0); Lymphocytes % 6.5 % (21.3-54.2); Mean Corpuscular Hemoglobin 29 PG (27-34); Mean Corpuscular Volume 91.9 FL (87-102); Mean Platelet Volume 10.4 FL (9.6-12.0); Neutrophils # 13.8 10*3/uL (1.4-7.4); Neutrophils % 78.7 % (38.7-73.9); Platelet Count 531 T/CUMM (130-400); Red Blood Count 2.84 MC/CUMM (3.8-5.5); Red Cell Distribution Width 16.8 % (9.3-17.3); White Blood Count 17.5 T/CUMM (4-12)
[2017-11-14 05:16] LABS: Band Neutrophils 2 % (0-10); Eosinophils 2 % (0-10); Giant Platelets Few; Hypochromasia 1+; Lymphocytes 9 % (20-55); Ovalocytes Slight; Platelet Estimate Adequate; Segmented Neutrophils 84 % (50-85); Total Cells Counted 100
[2017-11-14 05:17] LABS: Microcytosis Slight
[2017-11-14 05:19] LABS: Calcium 8.2 MG/DL (8.5-10.1); Osmolality,Calculated 312.4 MOS/KG (273-304); Potassium 5.3 MMOL/L (3.5-5.1)
[2017-11-14] MEDS: ASPIRIN EC 81 MG TABLET PO SCH (08:00)
[2017-11-14] MEDS: CITALOPRAM 20 MG TABLET NG SCH (08:00)
[2017-11-14] MEDS: GABAPENTIN 50 MG/ML 30 ML/BOTTLE PO SCH ×3 (08:00→23:27)
[2017-11-14] MEDS: FERROUS SULFATE 300 MG/5 ML UDCUP PO SCH ×2 (08:00→20:24)
[2017-11-14] MEDS: DOCUSATE SODIUM 100 MG/10 ML UDCUP PO SCH ×2 (08:00→20:24)
[2017-11-14] MEDS: traZODone 50 MG TABLET NG SCH ×3 (08:00→20:25)
[2017-11-14] MEDS: PANTOPRAZOLE 40 MG VIAL IV SCH (08:00)
[2017-11-14] MEDS: POTASSIUM CHLORIDE 20 MEQ/15 ML UDCUP PO SCH (08:00)
[2017-11-14] MEDS: ASCORBIC ACID 500 MG TABLET PO SCH ×2 (08:01→20:24)
[2017-11-14] MEDS: HydrOXYzine PAMOATE 25 MG CAPSULE NG SCH ×2 (08:01→20:25)
[2017-11-14] MEDS: QUEtiapine 25 MG TABLET NG SCH ×3 (08:01→20:25)
[2017-11-14] MEDS ORDERED: VANCOMYCIN INJ 1,500 MG in SODIUM CHLORIDE 0.9% 500 ML IV ONE ×2 (11:00→14:00)
[2017-11-14] MEDS: hydrALAZINE 20 MG/1 ML VIAL IV PRN (18:07)
[2017-11-14] MEDS: INSULIN GLARGINE 100 UNIT/ML SUBCUT SCH (20:24)
[2017-11-14] MEDS: ACETAMINOPHEN 325 MG TABLET PO PRN (20:25)
[2017-11-15] MEDS: INSULIN LISPRO 100 UNIT/ML SUBCUT SCH ×4 (01:04→19:05)
[2017-11-15] MEDS: PROPOFOL 1,000 MG/100 ML BOTTLE IV SCH ×3 (01:05→12:45)
[2017-11-15 03:40] LABS: ABG Base Excess -2.3 MMOL/L (-2.5-2.5); ABG HCO3 22.8 MMOL/L (20-26); ABG Oxygen Saturation 97.8 % (95-100); ABG PCO2 39.9 MM HG (35-48); ABG PH 7.374 (7.35-7.45); ABG PO2 113.3 MM HG (80-95); Allen Test Positive; Pt O2 Delivery Device Ventilator
[2017-11-15 04:40] LABS: Basophils # 0.1 10*3/uL (0.0-0.2); Basophils % 0.4 % (0.0-0.8); Eosinophils # 0.2 10*3/uL (0.0-0.87); Eosinophils % 1.2 % (0.00-10.9); Hematocrit 26.6 VOL% (35.7-47.0); Hemoglobin 8.1 GM/DL (12.0-16.0); Immature Granulocytes % 5.9 %; Lymphocytes # 0.9 10*3/uL (1.4-4.0); Lymphocytes % 5.9 % (21.3-54.2); Mean Corpuscular HGB Conc 30.5 GM/DL (32-36); Mean Corpuscular Hemoglobin 29 PG (27-34); Mean Platelet Volume 10.4 FL (9.6-12.0); Monocytes % 6.4 % (1.7-12.7); Neutrophils # 12.3 10*3/uL (1.4-7.4); Neutrophils % 80.2 % (38.7-73.9); Platelet Count 543 T/CUMM (130-400); Red Blood Count 2.83 MC/CUMM (3.8-5.5); Red Cell Distribution Width 17.2 % (9.3-17.3); White Blood Count 15.3 T/CUMM (4-12)
[2017-11-15 05:09] LABS: Band Neutrophils 4 % (0-10); Eosinophils 2 % (0-10); Giant Platelets Few; Hypochromasia 1+; Lymphocytes 4 % (20-55); Microcytosis Slight; Platelet Estimate Increased; Segmented Neutrophils 83 % (50-85); Total Cells Counted 100
[2017-11-15 05:11] LABS: Calcium 8.2 MG/DL (8.5-10.1); Osmolality,Calculated 317.1 MOS/KG (273-304); Potassium 4.9 MMOL/L (3.5-5.1)
[2017-11-15] MEDS: HydrOXYzine PAMOATE 25 MG CAPSULE NG SCH ×2 (09:07→20:36)
[2017-11-15] MEDS: CITALOPRAM 20 MG TABLET NG SCH (09:07)
[2017-11-15] MEDS: QUEtiapine 25 MG TABLET NG SCH ×3 (09:07→20:40)
[2017-11-15] MEDS: traZODone 50 MG TABLET NG SCH ×3 (09:07→20:36)
[2017-11-15] MEDS: ASPIRIN EC 81 MG TABLET PO SCH (09:08)
[2017-11-15] MEDS: ASCORBIC ACID 500 MG TABLET PO SCH ×2 (09:08→20:35)
[2017-11-15] MEDS: PANTOPRAZOLE 40 MG VIAL IV SCH (09:09)
[2017-11-15] MEDS: DOCUSATE SODIUM 100 MG/10 ML UDCUP PO SCH ×2 (09:09→20:35)
[2017-11-15] MEDS: FERROUS SULFATE 300 MG/5 ML UDCUP PO SCH ×2 (09:09→20:35)
[2017-11-15] MEDS: GABAPENTIN 50 MG/ML 30 ML/BOTTLE PO SCH ×3 (09:16→20:40)
[2017-11-15] MEDS: INSULIN GLARGINE 100 UNIT/ML SUBCUT SCH (20:37)
[2017-11-16] MEDS: INSULIN LISPRO 100 UNIT/ML SUBCUT SCH ×4 (00:15→18:47)
[2017-11-16 03:26] LABS: ABG Base Excess -1.7 MMOL/L (-2.5-2.5); ABG Oxygen Saturation 98.8 % (95-100); ABG PCO2 39.4 MM HG (35-48); ABG PH 7.378 (7.35-7.45); ABG TCO2 21.9 MMOL/L (23-27)
[2017-11-16] MEDS: PROPOFOL 1,000 MG/100 ML BOTTLE IV SCH ×3 (05:03→18:48)
[2017-11-16 05:26] LABS: Basophils % 0.3 % (0.0-0.8); Eosinophils # 0.1 10*3/uL (0.0-0.87); Eosinophils % 1.3 % (0.00-10.9); Hematocrit 24.9 VOL% (35.7-47.0); Hemoglobin 7.6 GM/DL (12.0-16.0); Immature Granulocytes % 4.5 %; Lymphocytes # 0.9 10*3/uL (1.4-4.0); Lymphocytes % 7.8 % (21.3-54.2); Mean Corpuscular HGB Conc 30.5 GM/DL (32-36); Mean Corpuscular Hemoglobin 29 PG (27-34); Mean Corpuscular Volume 93.3 FL (87-102); Mean Platelet Volume 10.6 FL (9.6-12.0); Monocytes # 0.9 10*3/uL (0.11-0.8); Monocytes % 8.4 % (1.7-12.7); NRBC # 0.02 10*3/uL; Neutrophils # 8.7 10*3/uL (1.4-7.4); Neutrophils % 77.7 % (38.7-73.9); Platelet Count 507 T/CUMM (130-400); Red Blood Count 2.67 MC/CUMM (3.8-5.5); Red Cell Distribution Width 17.3 % (9.3-17.3); White Blood Count 11.2 T/CUMM (4-12)
[2017-11-16 05:41] LABS: Calcium 7.8 MG/DL (8.5-10.1); Osmolality,Calculated 317.1 MOS/KG (273-304); Potassium 5.3 MMOL/L (3.5-5.1)
[2017-11-16 05:56] LABS: Band Neutrophils 1 % (0-10); Eosinophils 3 % (0-10); Giant Platelets Few; Hypochromasia 1+; Lymphocytes 1 % (20-55); Microcytosis Slight; Ovalocytes Slight; Platelet Estimate Increased; Segmented Neutrophils 87 % (50-85); Total Cells Counted 100
[2017-11-16] MEDS: ASPIRIN EC 81 MG TABLET PO SCH (08:24)
[2017-11-16] MEDS: ASCORBIC ACID 500 MG TABLET PO SCH ×2 (08:24→20:26)
[2017-11-16] MEDS: QUEtiapine 25 MG TABLET NG SCH ×3 (08:25→20:27)
[2017-11-16] MEDS: traZODone 50 MG TABLET NG SCH ×3 (08:25→20:27)
[2017-11-16] MEDS: HydrOXYzine PAMOATE 25 MG CAPSULE NG SCH ×2 (08:26→20:27)
[2017-11-16] MEDS: FERROUS SULFATE 300 MG/5 ML UDCUP PO SCH ×2 (08:26→20:26)
[2017-11-16] MEDS: CITALOPRAM 20 MG TABLET NG SCH (08:26)
[2017-11-16] MEDS: DOCUSATE SODIUM 100 MG/10 ML UDCUP PO SCH ×2 (08:26→20:26)
[2017-11-16] MEDS: PANTOPRAZOLE 40 MG VIAL IV SCH (08:27)
[2017-11-16] MEDS: GABAPENTIN 50 MG/ML 30 ML/BOTTLE PO SCH ×3 (08:30→20:27)
[2017-11-16] MEDS ORDERED: VANCOMYCIN INJ 1,500 MG in SODIUM CHLORIDE 0.9% 500 ML IV ONE (14:00)
[2017-11-16] MEDS ORDERED: fentaNYL INJ 1,250 MCG in SODIUM CHLORIDE 0.9% 225 ML IV SCH (15:30)
[2017-11-16] MEDS: fentaNYL 100 MCG/2 ML VIAL IV PRN (15:30)
[2017-11-16] MEDS: fentaNYL INJ 1,250 MCG in SODIUM CHLORIDE 0.9% 225 ML IV SCH (16:42)
[2017-11-16] MEDS ORDERED: BISACODYL 10 MG SUPP RECTAL PRN (18:23)
[2017-11-16] MEDS: INSULIN GLARGINE 100 UNIT/ML SUBCUT SCH (20:27)
[2017-11-17] MEDS: INSULIN LISPRO 100 UNIT/ML SUBCUT SCH ×4 (00:42→18:24)
[2017-11-17] MEDS: PROPOFOL 1,000 MG/100 ML BOTTLE IV SCH ×3 (00:43→15:26)
[2017-11-17 03:58] LABS: ABG Base Excess -3.1 MMOL/L (-2.5-2.5); ABG HCO3 21.7 MMOL/L (20-26); ABG Oxygen Saturation 97.2 % (95-100); ABG PCO2 37.7 MM HG (35-48); ABG PH 7.378 (7.35-7.45); ABG PO2 101.1 MM HG (80-95); ABG TCO2 22.9 MMOL/L (23-27)
[2017-11-17 04:23] LABS: Basophils % 0.2 % (0.0-0.8); Eosinophils # 0.1 10*3/uL (0.0-0.87); Eosinophils % 1.3 % (0.00-10.9); Hematocrit 22.1 VOL% (35.7-47.0); Hemoglobin 6.6 GM/DL (12.0-16.0); Immature Granulocytes Absolute 0.36 #; Lymphocytes # 0.7 10*3/uL (1.4-4.0); Lymphocytes % 7.4 % (21.3-54.2); Mean Corpuscular HGB Conc 29.9 GM/DL (32-36); Mean Corpuscular Hemoglobin 28 PG (27-34); Mean Corpuscular Volume 95.3 FL (87-102); Mean Platelet Volume 9.9 FL (9.6-12.0); Monocytes # 0.7 10*3/uL (0.11-0.8); Neutrophils # 7.1 10*3/uL (1.4-7.4); Neutrophils % 79.1 % (38.7-73.9); Platelet Count 382 T/CUMM (130-400); Red Blood Count 2.32 MC/CUMM (3.8-5.5); Red Cell Distribution Width 17.1 % (9.3-17.3)
[2017-11-17 05:00] LABS: Calcium 7.7 MG/DL (8.5-10.1); Osmolality,Calculated 313.4 MOS/KG (273-304); Potassium 4.7 MMOL/L (3.5-5.1)
[2017-11-17] MEDS ORDERED: SODIUM CHLORIDE 0.9% 1,000 ML IV PRN (05:04)
[2017-11-17] MEDS ORDERED: SODIUM CHLORIDE 0.9% 500 ML IV ONE (05:04)
[2017-11-17 05:28] LABS: Band Neutrophils 3 % (0-10); Eosinophils 1 % (0-10); Lymphocytes 4 % (20-55); Platelet Estimate Adequate; Segmented Neutrophils 82 % (50-85); Total Cells Counted 100
[2017-11-17 05:29] LABS: Giant Platelets Few; Hypochromasia 1+; Microcytosis Slight; Ovalocytes Slight
[2017-11-17] MEDS: HydrOXYzine PAMOATE 25 MG CAPSULE NG SCH ×2 (09:13→21:29)
[2017-11-17] MEDS: PANTOPRAZOLE 40 MG VIAL IV SCH (09:13)
[2017-11-17] MEDS: ASCORBIC ACID 500 MG TABLET PO SCH ×2 (09:13→21:29)
[2017-11-17] MEDS: DOCUSATE SODIUM 100 MG/10 ML UDCUP PO SCH ×2 (09:13→21:28)
[2017-11-17] MEDS: CITALOPRAM 20 MG TABLET NG SCH (09:13)
[2017-11-17] MEDS: ASPIRIN EC 81 MG TABLET PO SCH (09:13)
[2017-11-17] MEDS: QUEtiapine 25 MG TABLET NG SCH ×2 (09:13→21:29)
[2017-11-17] MEDS: FERROUS SULFATE 300 MG/5 ML UDCUP PO SCH ×2 (09:13→21:29)
[2017-11-17] MEDS: traZODone 50 MG TABLET NG SCH ×3 (09:13→21:28)
[2017-11-17] MEDS: GABAPENTIN 50 MG/ML 30 ML/BOTTLE PO SCH ×3 (10:25→21:29)
[2017-11-17] MEDS: INSULIN GLARGINE 100 UNIT/ML SUBCUT SCH (21:29)
[2017-11-18] MEDS: INSULIN LISPRO 100 UNIT/ML SUBCUT SCH ×5 (00:36→23:56)
[2017-11-18] MEDS: PROPOFOL 1,000 MG/100 ML BOTTLE IV SCH ×3 (01:45→19:23)
[2017-11-18 03:06] LABS: ABG Base Excess -2.4 MMOL/L (-2.5-2.5); ABG HCO3 22.4 MMOL/L (20-26); ABG Oxygen Saturation 96.6 % (95-100); ABG PCO2 34.5 MM HG (35-48); ABG PH 7.406 (7.35-7.45); ABG PO2 81.2 MM HG (80-95); ABG TCO2 19.8 MMOL/L (23-27)
[2017-11-18 08:31] LABS: Hematocrit 30.8 VOL% (35.7-47.0)
[2017-11-18 08:59] LABS: Magnesium 2.7 MG/DL (1.8-2.4); Osmolality,Calculated 314.4 MOS/KG (273-304); Potassium 5.1 MMOL/L (3.5-5.1)
[2017-11-18] MEDS: HydrOXYzine PAMOATE 25 MG CAPSULE NG SCH ×2 (09:05→21:18)
[2017-11-18] MEDS: CITALOPRAM 20 MG TABLET NG SCH (09:05)
[2017-11-18] MEDS: ASPIRIN EC 81 MG TABLET PO SCH (09:05)
[2017-11-18] MEDS: traZODone 50 MG TABLET NG SCH ×3 (09:05→21:17)
[2017-11-18] MEDS: PANTOPRAZOLE 40 MG VIAL IV SCH (09:06)
[2017-11-18] MEDS: FERROUS SULFATE 300 MG/5 ML UDCUP PO SCH ×2 (09:06→21:19)
[2017-11-18] MEDS: DOCUSATE SODIUM 100 MG/10 ML UDCUP PO SCH ×2 (09:06→21:19)
[2017-11-18] MEDS: ASCORBIC ACID 500 MG TABLET PO SCH ×2 (09:15→21:18)
[2017-11-18] MEDS: POTASSIUM CHLORIDE 20 MEQ/15 ML UDCUP PO SCH (09:15)
[2017-11-18] MEDS: QUEtiapine 25 MG TABLET NG SCH ×2 (09:16→21:18)
[2017-11-18] MEDS: GABAPENTIN 50 MG/ML 30 ML/BOTTLE PO SCH ×3 (10:28→21:19)
[2017-11-18 11:57] LABS: Apearance,Urine Slightly Hazy (Clear); Bacteria,Urine Few /HPF (Few); Bilirubin,Urine Negative (Negative); Blood, Urine Moderate mg/dL (Negative); Glucose,Urine (UA) Negative (Negative); Ketones,Urine Negative (Negative); Mucus,Urine Occasional /LPF (Occasional); Nitrite,Urine Positive (Negative); Protein,Urine Negative; RBC,Urine 3 /HPF (0-4); Squamous Epithelial Cell,Urine Occasional /HPF (0-10); Urine Color Yellow (Yellow); Urine Specific Gravity 1.011 (1.001-1.035); Urine Urobilinogen < 2.0 EU/DL (0.2-1.0); WBC,Urine 14 /HPF (0-6)
[2017-11-18] MEDS: fentaNYL INJ 1,250 MCG in SODIUM CHLORIDE 0.9% 225 ML IV SCH ×2 (12:39→19:24)
[2017-11-18] MEDS: FUROSEMIDE 40 MG/4 ML VIAL IV SCH (15:46)
[2017-11-18] MEDS ORDERED: VANCOMYCIN INJ 1,500 MG in SODIUM CHLORIDE 0.9% 500 ML IV ONE (21:00)
[2017-11-18] MEDS: INSULIN GLARGINE 100 UNIT/ML SUBCUT SCH (21:20)
[2017-11-19] MEDS: PROPOFOL 1,000 MG/100 ML BOTTLE IV SCH (01:15)
[2017-11-19 03:42] LABS: ABG Base Excess -2.9 MMOL/L (-2.5-2.5); ABG PH 7.421 (7.35-7.45); ABG PO2 93.6 MM HG (80-95); Allen Test Positive; Pt O2 Delivery Device Ventilator
[2017-11-19 04:56] LABS: Basophils % 0.3 % (0.0-0.8); Eosinophils # 0.1 10*3/uL (0.0-0.87); Hematocrit 28.5 VOL% (35.7-47.0); Hemoglobin 9.1 GM/DL (12.0-16.0); Immature Granulocytes % 2.3 %; Immature Granulocytes Absolute 0.18 #; Lymphocytes # 0.6 10*3/uL (1.4-4.0); Lymphocytes % 7.8 % (21.3-54.2); Mean Corpuscular HGB Conc 31.9 GM/DL (32-36); Mean Corpuscular Hemoglobin 29 PG (27-34); Mean Corpuscular Volume 91.1 FL (87-102); Mean Platelet Volume 10.9 FL (9.6-12.0); Monocytes # 0.5 10*3/uL (0.11-0.8); Monocytes % 6.8 % (1.7-12.7); Neutrophils # 6.5 10*3/uL (1.4-7.4); Neutrophils % 81.8 % (38.7-73.9); Platelet Count 318 T/CUMM (130-400); Red Blood Count 3.13 MC/CUMM (3.8-5.5); Red Cell Distribution Width 16.5 % (9.3-17.3)
[2017-11-19 05:27] LABS: Albumin 1.3 G/DL (3.4-5.0); Calcium 7.7 MG/DL (8.5-10.1); Osmolality,Calculated 308.7 MOS/KG (273-304); Potassium 4.8 MMOL/L (3.5-5.1); Total Protein 5.8 G/DL (6.4-8.3)
[2017-11-19 05:36] LABS: % Iron Saturation 24.4 % (18-50); Ferritin 425.9 ng/ml (8-252); Thyroid Stimulating Hormone 6.95 uIU/ml (0.358-3.74)
[2017-11-19 05:45] LABS: Band Neutrophils 2 % (0-10); Lymphocytes 9 % (20-55); Macrocytosis 2+; Platelet Estimate Normal; Segmented Neutrophils 88 % (50-85); Total Cells Counted 100
[2017-11-19] MEDS: INSULIN LISPRO 100 UNIT/ML SUBCUT SCH ×3 (06:01→17:50)
[2017-11-19] MEDS: DOCUSATE SODIUM 100 MG/10 ML UDCUP PO SCH ×2 (08:26→21:33)
[2017-11-19] MEDS: ASCORBIC ACID 500 MG TABLET PO SCH ×2 (08:26→21:33)
[2017-11-19] MEDS: POTASSIUM CHLORIDE 20 MEQ/15 ML UDCUP PO SCH (08:26)
[2017-11-19] MEDS: FERROUS SULFATE 300 MG/5 ML UDCUP PO SCH ×2 (08:26→21:33)
[2017-11-19] MEDS: HydrOXYzine PAMOATE 25 MG CAPSULE NG SCH ×2 (08:26→21:34)
[2017-11-19] MEDS: CITALOPRAM 20 MG TABLET NG SCH (08:26)
[2017-11-19] MEDS: QUEtiapine 25 MG TABLET NG SCH ×2 (08:26→21:33)
[2017-11-19] MEDS: ASPIRIN EC 81 MG TABLET PO SCH (08:26)
[2017-11-19] MEDS: FUROSEMIDE 40 MG/4 ML VIAL IV SCH ×2 (08:27→15:24)
[2017-11-19] MEDS: PANTOPRAZOLE 40 MG VIAL IV SCH (08:30)
[2017-11-19] MEDS: traZODone 50 MG TABLET NG SCH ×3 (08:53→21:34)
[2017-11-19] MEDS: GABAPENTIN 50 MG/ML 30 ML/BOTTLE PO SCH ×3 (09:46→21:34)
[2017-11-19] MEDS: SALIVA SUBSTITUTE SPRAY 60 ML CAN SWISH/SPIT PRN ×2 (12:45→15:25)
[2017-11-19] MEDS: INSULIN GLARGINE 100 UNIT/ML SUBCUT SCH (21:34)
[2017-11-20] MEDS: INSULIN LISPRO 100 UNIT/ML SUBCUT SCH ×4 (00:07→18:12)
[2017-11-20 04:23] LABS: ABG Base Excess -1.1 MMOL/L (-2.5-2.5); ABG HCO3 22.6 MMOL/L (20-26); ABG Oxygen Saturation 97.1 % (95-100); ABG PH 7.428 (7.35-7.45); ABG PO2 91.6 MM HG (80-95); ABG TCO2 23.7 MMOL/L (23-27)
[2017-11-20 05:01] LABS: Basophils % 0.4 % (0.0-0.8); Eosinophils # 0.1 10*3/uL (0.0-0.87); Eosinophils % 0.8 % (0.00-10.9); Hematocrit 30.2 VOL% (35.7-47.0); Hemoglobin 9.6 GM/DL (12.0-16.0); Immature Granulocytes % 2.1 %; Immature Granulocytes Absolute 0.22 #; Lymphocytes # 0.7 10*3/uL (1.4-4.0); Lymphocytes % 6.7 % (21.3-54.2); Mean Corpuscular HGB Conc 31.8 GM/DL (32-36); Mean Corpuscular Hemoglobin 29 PG (27-34); Mean Corpuscular Volume 91.5 FL (87-102); Mean Platelet Volume 10.2 FL (9.6-12.0); Monocytes # 0.6 10*3/uL (0.11-0.8); Monocytes % 6.2 % (1.7-12.7); Neutrophils # 8.7 10*3/uL (1.4-7.4); Neutrophils % 83.8 % (38.7-73.9); Platelet Count 321 T/CUMM (130-400); White Blood Count 10.4 T/CUMM (4-12)
[2017-11-20 05:11] LABS: Magnesium 2.5 MG/DL (1.8-2.4); Osmolality,Calculated 299.3 MOS/KG (273-304); Potassium 4.9 MMOL/L (3.5-5.1)
[2017-11-20 05:15] LABS: Magnesium 2.4 MG/DL (1.8-2.4); Prealbumin 17.5 MG/DL (20-40)
[2017-11-20] MEDS: LEVOTHYROXINE 50 MCG TABLET NG SCH (06:22)
[2017-11-20 06:34] LABS: Hypochromasia 1+; Microcytosis 1+; Platelet Estimate Normal
[2017-11-20] MEDS ORDERED: GENTAMICIN INJ 240 MG in SODIUM CHLORIDE 0.9% 100 ML IV SCH (09:30)
[2017-11-20] MEDS: POTASSIUM CHLORIDE 20 MEQ/15 ML UDCUP PO SCH (10:02)
[2017-11-20] MEDS: FERROUS SULFATE 300 MG/5 ML UDCUP PO SCH ×2 (10:03→20:12)
[2017-11-20] MEDS: DOCUSATE SODIUM 100 MG/10 ML UDCUP PO SCH ×2 (10:03→20:12)
[2017-11-20] MEDS: ASPIRIN EC 81 MG TABLET PO SCH (10:07)
[2017-11-20] MEDS: traZODone 50 MG TABLET NG SCH ×3 (10:07→20:13)
[2017-11-20] MEDS: QUEtiapine 25 MG TABLET NG SCH ×2 (10:07→20:13)
[2017-11-20] MEDS: ASCORBIC ACID 500 MG TABLET PO SCH ×2 (10:07→20:13)
[2017-11-20] MEDS: CITALOPRAM 20 MG TABLET NG SCH (10:08)
[2017-11-20] MEDS: HydrOXYzine PAMOATE 25 MG CAPSULE NG SCH ×2 (10:08→20:13)
[2017-11-20] MEDS: PANTOPRAZOLE 40 MG VIAL IV SCH (10:09)
[2017-11-20] MEDS: FUROSEMIDE 40 MG/4 ML VIAL IV SCH ×2 (10:12→16:25)
[2017-11-20] MEDS: GABAPENTIN 50 MG/ML 30 ML/BOTTLE PO SCH ×3 (10:17→20:13)
[2017-11-20] MEDS ORDERED: MEROPENEM 1,000 MG in SYRINGE 1 EACH IV SCH (11:30)
[2017-11-20] MEDS: PROPOFOL 1,000 MG/100 ML BOTTLE IV SCH ×2 (11:54→11:55)
[2017-11-20] MEDS: fentaNYL INJ 1,250 MCG in SODIUM CHLORIDE 0.9% 225 ML IV SCH (11:59)
[2017-11-20] MEDS: cefTRIAXone 1,000 MG in SYRINGE 1 EACH IV SCH (12:14)
[2017-11-20 14:52] LABS: Folate 4.2 NG/ML (5.4-24.0)
[2017-11-20] MEDS: INSULIN GLARGINE 100 UNIT/ML SUBCUT SCH (20:13)
[2017-11-21] MEDS: INSULIN LISPRO 100 UNIT/ML SUBCUT SCH ×3 (00:20→12:01)
[2017-11-21] MEDS: LEVOTHYROXINE 50 MCG TABLET NG SCH (05:45)
[2017-11-21] MEDS ORDERED: MIDAZOLAM 10 MG/2 ML VIAL ONE (06:25)
[2017-11-21] MEDS ORDERED: MIDAZOLAM 2 MG/2 ML VIAL IV STA (06:38)
[2017-11-21] MEDS ORDERED: VANCOMYCIN INJ 1,500 MG in SODIUM CHLORIDE 0.9% 500 ML IV ONE (09:00)
[2017-11-21] MEDS: POTASSIUM CHLORIDE 20 MEQ/15 ML UDCUP PO SCH (10:06)
[2017-11-21] MEDS: DOCUSATE SODIUM 100 MG/10 ML UDCUP PO SCH (10:06)
[2017-11-21] MEDS: QUEtiapine 25 MG TABLET NG SCH (10:06)
[2017-11-21] MEDS: FERROUS SULFATE 300 MG/5 ML UDCUP PO SCH (10:06)
[2017-11-21] MEDS: HydrOXYzine PAMOATE 25 MG CAPSULE NG SCH (10:08)
[2017-11-21] MEDS: PANTOPRAZOLE 40 MG VIAL IV SCH (10:08)
[2017-11-21] MEDS: CITALOPRAM 20 MG TABLET NG SCH (10:08)
[2017-11-21] MEDS: traZODone 50 MG TABLET NG SCH ×2 (10:08→15:46)
[2017-11-21] MEDS: ASCORBIC ACID 500 MG TABLET PO SCH (10:08)
[2017-11-21] MEDS: ASPIRIN EC 81 MG TABLET PO SCH (10:08)
[2017-11-21] MEDS: FUROSEMIDE 40 MG/4 ML VIAL IV SCH ×2 (10:11→15:46)
[2017-11-21] MEDS: GABAPENTIN 50 MG/ML 30 ML/BOTTLE PO SCH ×2 (10:15→15:46)
[2017-11-21] MEDS: fentaNYL INJ 1,250 MCG in SODIUM CHLORIDE 0.9% 225 ML IV SCH (12:07)
[2017-11-21] MEDS: cefTRIAXone 1,000 MG in SYRINGE 1 EACH IV SCH (12:08)
[2017-11-21] MEDS: PROPOFOL 1,000 MG/100 ML BOTTLE IV SCH (12:08)
[2017-11-21 17:09] VITALS: BP 117/64
== END 2017-11-21 16:30 | DRG 4 ==
LOC: N.ED 02:31 → N.EDINP 08:53 → SUATTDRO 08:53 → N.EDINP 09:50 → N.3E 10:07 → N.ICU 11-05 22:32 → N.TELEN 11-16 18:35 → N.ICU 11-16 18:48
PROVIDERS: ATTEND Internal Medicine

== ENCOUNTER 2021-10-11 12:48 | Inpatient (IN) ==
[2021-10-11] MEDS ORDERED: ONDANSETRON 4 MG/2 ML VIAL IV STA (14:45)
[2021-10-11] MEDS ORDERED: MORPHINE 2 MG/1 ML SYRINGE IV STA (14:45)
[2021-10-11] MEDS ORDERED: GLUCAGON 1 MG VIAL IM PRN (15:18)
[2021-10-11] MEDS ORDERED: DEXTROSE 50% 25 GM/50 ML VIAL IV PRN (15:18)
[2021-10-11] MEDS ORDERED: ONDANSETRON 4 MG/2 ML VIAL IV PRN (15:18)
[2021-10-11 15:26] LABS: Basophils % 0.5 % (0.0-0.8); Eosinophils # 0.2 10*3/uL (0.0-0.87); Eosinophils % 2.6 % (0.00-10.9); Hematocrit 37.7 VOL% (35.7-47.0); Hemoglobin 12.3 GM/DL (12.0-16.0); Immature Granulocytes % 0.6 %; Immature Granulocytes Absolute 0.04 #; Lymphocytes # 0.9 10*3/uL (1.4-4.0); Lymphocytes % 14.3 % (21.3-54.2); Mean Corpuscular HGB Conc 32.6 GM/DL (32-36); Mean Corpuscular Volume 97.2 FL (87-102); Mean Platelet Volume 11.2 FL (9.6-12.0); Monocytes % 9.2 % (1.7-12.7); Neutrophils % 72.8 % (38.7-73.9); Platelet Count 144 T/CUMM (130-400); Red Blood Count 3.88 MC/CUMM (3.8-5.5); Red Cell Distribution Width 13.5 % (9.3-17.3); White Blood Count 6.4 T/CUMM (4-12)
[2021-10-11 15:32] LABS: Calcium 8.9 MG/DL (8.5-10.1); Osmolality,Calculated 294.6 MOS/KG (273-304); Potassium 3.1 MMOL/L (3.5-5.1)
[2021-10-11 15:54] LABS: INR 1.1; PT Patient Result 11.7 SECS (10.5-12.0); Partial Thromboplastin Time 28.8 SECS (23.8-32.1)
[2021-10-11] MEDS ORDERED: DEXTROSE 50% 25 GM/50 ML SYRINGE IV PRN (15:56)
[2021-10-11] MEDS ORDERED: GABAPENTIN 600 MG TABLET PO PRN (16:16)
[2021-10-11] MEDS: INSULIN REGULAR 100 UNIT/ML SUBCUT SCH (18:00)
[2021-10-11] MEDS: SODIUM CHLOR 0.45% KCL 20 MEQ 20 MEQ/1,000 ML BAG IV SCH (18:00)
[2021-10-11] MEDS ORDERED: SERTRALINE 25 MG TABLET ONE (20:07)
[2021-10-11] MEDS: METHENAMINE HIPPURATE 1 GM TABLET PO SCH (21:30)
[2021-10-11] MEDS: QUEtiapine 25 MG TABLET PO SCH ×2 (21:30→21:43)
[2021-10-12] MEDS: MORPHINE 2 MG/1 ML SYRINGE IV PRN (03:30)
[2021-10-12 04:30] LABS: Basophils % 0.6 % (0.0-0.8); Eosinophils # 0.3 10*3/uL (0.0-0.87); Hematocrit 37.4 VOL% (35.7-47.0); Hemoglobin 11.8 GM/DL (12.0-16.0); Immature Granulocytes % 0.5 %; Immature Granulocytes Absolute 0.03 #; Lymphocytes % 15.5 % (21.3-54.2); Mean Corpuscular HGB Conc 31.6 GM/DL (32-36); Mean Platelet Volume 10.9 FL (9.6-12.0); Neutrophils % 70.4 % (38.7-73.9); Platelet Count 119 T/CUMM (130-400); Red Blood Count 3.74 MC/CUMM (3.8-5.5); Red Cell Distribution Width 13.4 % (9.3-17.3); White Blood Count 6.2 T/CUMM (4-12)
[2021-10-12 04:57] LABS: Albumin 2.7 G/DL (3.4-5.0); Bilirubin,Total 1.1 MG/DL (0.20-1.00); Calcium 8.3 MG/DL (8.5-10.1); Potassium 3.8 MMOL/L (3.5-5.1); Total Protein 6.2 G/DL (6.4-8.2)
[2021-10-12] MEDS ORDERED: DEXMEDETOMIDINE 200 MCG/2 ML VIAL ONE ×2 (08:34→08:35)
[2021-10-12] MEDS ORDERED: BUPIVACAINE SPINAL 0.75% 2 ML AMP SPINAL ONE (08:34)
[2021-10-12] MEDS ORDERED: ETOMIDATE 40 MG/20 ML VIAL IV ONE (08:34)
[2021-10-12] MEDS ORDERED: ONDANSETRON 4 MG/2 ML VIAL ONE (08:35)
[2021-10-12] MEDS ORDERED: TRANEXAMIC ACID 1,000 MG/10 ML VIAL ONE (08:35)
[2021-10-12] MEDS ORDERED: LIDOCAINE 1% 5 ML VIAL ONE (08:48)
[2021-10-12] MEDS ORDERED: BUPIVACAINE MPF 0.25% 30 ML VIAL ONE (08:48)
[2021-10-12] MEDS ORDERED: DEXAMETHASONE 4 MG/1 ML VIAL ONE (08:48)
[2021-10-12] MEDS ORDERED: MIDAZOLAM 2 MG/2 ML VIAL ONE (09:00)
[2021-10-12] MEDS ORDERED: KETAMINE 500 MG/10 ML VIAL ONE (09:25)
[2021-10-12] MEDS ORDERED: PHENYLEPHRINE 1 MG/10 ML SYRINGE IV ONE (10:24)
[2021-10-12] MEDS ORDERED: GLYCOPYRROLATE 0.4 MG/2 ML VIAL ONE (10:24)
[2021-10-12] MEDS ORDERED: LABETALOL 20 MG/4 ML SYRINGE IV ONE (10:30)
[2021-10-12] MEDS ORDERED: LACTATED RINGERS 1,000 ML IV ONE (10:46)
[2021-10-12] MEDS ORDERED: CLINDAMYCIN INJ 900 MG/50 ML PREMIX IV ONE (11:00)
[2021-10-12] MEDS ORDERED: MAGNESIUM HYDROXIDE SUSP 30 ML UDCUP PO PRN (11:03)
[2021-10-12] MEDS ORDERED: LACTULOSE 20 GM/30 ML UDCUP PO PRN (11:04)
[2021-10-12] MEDS ORDERED: BISACODYL 10 MG SUPP RECTAL PRN (11:04)
[2021-10-12] MEDS ORDERED: diphenhydrAMINE CAP 25 MG CAPSULE PO PRN (11:04)
[2021-10-12 11:42] LABS: Bacteria,Urine Occasional /HPF (Few); Bilirubin,Urine Negative (Negative); Blood, Urine Negative (Negative); Glucose,Urine (UA) Negative (Negative); Ketones,Urine Negative (Negative); Mucus,Urine Occasional /LPF (Occasional); Nitrite,Urine Negative (Negative); Protein,Urine 30 MG/DL; RBC,Urine 39 /HPF (0-4); Squamous Epithelial Cell,Urine Occasional /HPF (0-10); Urine Appearance Slightly Hazy (Clear); Urine Color Yellow (Yellow); Urine Urobilinogen < 2.0 EU/DL (<2.0)
[2021-10-12] MEDS: INSULIN REGULAR 100 UNIT/ML SUBCUT SCH ×5 (12:37→22:24)
[2021-10-12] MEDS: LEVOTHYROXINE 50 MCG TABLET PO SCH (12:51)
[2021-10-12] MEDS: PANTOPRAZOLE 40 MG TABLET PO SCH (12:51)
[2021-10-12] MEDS: ASCORBIC ACID 500 MG TABLET PO SCH (12:51)
[2021-10-12] MEDS: METHENAMINE HIPPURATE 1 GM TABLET PO SCH ×2 (12:52→22:24)
[2021-10-12] MEDS: SODIUM CHLOR 0.45% KCL 20 MEQ 20 MEQ/1,000 ML BAG IV SCH ×2 (12:52→22:05)
[2021-10-12] MEDS: traZODone 50 MG TABLET PO SCH (14:05)
[2021-10-12] MEDS: QUEtiapine 25 MG TABLET PO SCH ×3 (14:05→22:25)
[2021-10-12] MEDS: CITALOPRAM 20 MG TABLET PO SCH (14:05)
[2021-10-12] MEDS: CLINDAMYCIN INJ 900 MG/50 ML PREMIX IV SCH (17:31)
[2021-10-12] MEDS: DOCUSATE SODIUM 100 MG CAPSULE PO SCH (22:24)
[2021-10-12] MEDS: LACTATED RINGERS 1,000 ML IV SCH (22:28)
[2021-10-13] MEDS: CLINDAMYCIN INJ 900 MG/50 ML PREMIX IV SCH (03:25)
[2021-10-13 05:32] LABS: Basophils % 0.1 % (0.0-0.8); Hemoglobin 11.1 GM/DL (12.0-16.0); Immature Granulocytes % 0.5 %; Immature Granulocytes Absolute 0.05 #; Lymphocytes # 0.4 10*3/uL (1.4-4.0); Lymphocytes % 3.9 % (21.3-54.2); Mean Corpuscular HGB Conc 30.8 GM/DL (32-36); Mean Corpuscular Volume 103.2 FL (87-102); Mean Platelet Volume 11.5 FL (9.6-12.0); Monocytes % 7.6 % (1.7-12.7); Neutrophils % 87.9 % (38.7-73.9); Platelet Count 117 T/CUMM (130-400); Red Blood Count 3.49 MC/CUMM (3.8-5.5); Red Cell Distribution Width 13.2 % (9.3-17.3); White Blood Count 9.7 T/CUMM (4-12)
[2021-10-13] MEDS: FONDAPARINUX 2.5 MG/0.5 ML SYRINGE SUBCUT SCH (05:45)
[2021-10-13] MEDS: LEVOTHYROXINE 50 MCG TABLET PO SCH ×2 (05:45→05:57)
[2021-10-13 05:50] LABS: Calcium 8.3 MG/DL (8.5-10.1); Osmolality,Calculated 282.5 MOS/KG (273-304); Potassium 4.9 MMOL/L (3.5-5.1)
[2021-10-13 06:08] LABS: Lymphocytes 4 % (20-55); Segmented Neutrophils 89 % (50-85); Total Cells Counted 100
[2021-10-13 06:10] LABS: Hypochromasia Slight
[2021-10-13 06:11] LABS: Macrocytosis Slight; Ovalocytes Slight; Platelet Estimate Adequate
[2021-10-13 07:55] LABS: Free T4 (Free Thyroxine) 1.32 NG/DL (0.76-1.46)
[2021-10-13] MEDS: CITALOPRAM 20 MG TABLET PO SCH (08:07)
[2021-10-13] MEDS: LACTATED RINGERS 1,000 ML IV SCH (08:07)
[2021-10-13] MEDS: DOCUSATE SODIUM 100 MG CAPSULE PO SCH ×3 (08:07→22:03)
[2021-10-13] MEDS: METHENAMINE HIPPURATE 1 GM TABLET PO SCH ×2 (08:08→21:52)
[2021-10-13] MEDS: QUEtiapine 25 MG TABLET PO SCH ×3 (08:08→21:59)
[2021-10-13] MEDS: PANTOPRAZOLE 40 MG TABLET PO SCH (08:08)
[2021-10-13] MEDS: INSULIN REGULAR 100 UNIT/ML SUBCUT SCH ×4 (08:10→21:54)
[2021-10-13] MEDS ORDERED: FUROSEMIDE 20 MG TABLET PO SCH (09:00)
[2021-10-13] MEDS: SODIUM CHLOR 0.45% KCL 20 MEQ 20 MEQ/1,000 ML BAG IV SCH ×3 (09:02→19:36)
[2021-10-13] MEDS: ASCORBIC ACID 500 MG TABLET PO SCH (11:08)
[2021-10-13] MEDS: traZODone 50 MG TABLET PO SCH (11:08)
[2021-10-13] MEDS: MORPHINE 2 MG/1 ML SYRINGE IV PRN ×2 (14:09→18:17)
[2021-10-14] MEDS: MORPHINE 2 MG/1 ML SYRINGE IV PRN ×3 (01:30→13:37)
[2021-10-14] MEDS: SODIUM CHLOR 0.45% KCL 20 MEQ 20 MEQ/1,000 ML BAG IV SCH ×2 (03:56→14:44)
[2021-10-14 05:03] LABS: Basophils % 0.2 % (0.0-0.8); Eosinophils % 0.6 % (0.00-10.9); Hematocrit 31.9 VOL% (35.7-47.0); Hemoglobin 10.1 GM/DL (12.0-16.0); Immature Granulocytes % 0.9 %; Immature Granulocytes Absolute 0.06 #; Lymphocytes # 0.7 10*3/uL (1.4-4.0); Lymphocytes % 10.9 % (21.3-54.2); Mean Corpuscular HGB Conc 31.7 GM/DL (32-36); Mean Corpuscular Volume 99.4 FL (87-102); Mean Platelet Volume 11.2 FL (9.6-12.0); Monocytes % 9.8 % (1.7-12.7); Neutrophils % 77.6 % (38.7-73.9); Platelet Count 115 T/CUMM (130-400); Red Blood Count 3.21 MC/CUMM (3.8-5.5); Red Cell Distribution Width 13.4 % (9.3-17.3); White Blood Count 6.4 T/CUMM (4-12)
[2021-10-14] MEDS: FONDAPARINUX 2.5 MG/0.5 ML SYRINGE SUBCUT SCH (05:07)
[2021-10-14 05:27] LABS: Eosinophils 3 % (0-10); Lymphocytes 9 % (20-55); Platelet Estimate Normal; Segmented Neutrophils 82 % (50-85); Total Cells Counted 100
[2021-10-14 05:31] LABS: Calcium 8.3 MG/DL (8.5-10.1); Osmolality,Calculated 283.1 MOS/KG (273-304); Potassium 4.5 MMOL/L (3.5-5.1)
[2021-10-14] MEDS: LEVOTHYROXINE 50 MCG TABLET PO SCH (07:31)
[2021-10-14] MEDS: INSULIN REGULAR 100 UNIT/ML SUBCUT SCH ×2 (07:32→11:31)
[2021-10-14] MEDS: LACTATED RINGERS 1,000 ML IV SCH (07:34)
[2021-10-14] MEDS: METHENAMINE HIPPURATE 1 GM TABLET PO SCH (09:04)
[2021-10-14] MEDS: PANTOPRAZOLE 40 MG TABLET PO SCH (09:05)
[2021-10-14] MEDS: CITALOPRAM 20 MG TABLET PO SCH (09:05)
[2021-10-14] MEDS: QUEtiapine 25 MG TABLET PO SCH (09:05)
[2021-10-14] MEDS: DOCUSATE SODIUM 100 MG CAPSULE PO SCH (09:05)
[2021-10-14] MEDS: traZODone 50 MG TABLET PO SCH (11:10)
[2021-10-14] MEDS: ASCORBIC ACID 500 MG TABLET PO SCH (11:11)
[2021-10-14 11:43] VITALS: BP 151/69
== END 2021-10-14 14:45 | disposition home health service (06) | DRG 522 ==
LOC: EDUNIT# → EDBD → N.ED 12:48 → N.EDINP 15:18 → N.3E 18:12
PROVIDERS: ADMIT Internal Medicine; ATTEND Internal Medicine